=== PATIENT | female | born 1965 | race African-American/Black ===

== ENCOUNTER 2024-02-17 12:36 | Inpatient (IN) | payer OTHER ==
[2024-02-17 13:50] VITALS: BMI 30.4
[2024-02-17] MEDS ORDERED: MAG HYDROX/AL HYDROX/SIMETH 30 ML UNIT-DOSE CUP PO PRN (14:27)
[2024-02-17] MEDS ORDERED: chlordiazePOXIDE HCL 25 MG CAPSULE PO PRN (14:27)
[2024-02-17] MEDS ORDERED: ONDANSETRON *ODT* 4 MG TABLET SL PRN (14:27)
[2024-02-17] MEDS ORDERED: hydrOXYzine PAMOATE 25 MG CAPSULE (FP) PO PRN (14:27)
[2024-02-17] MEDS ORDERED: BENZONATATE 200 MG CAPSULE PO PRN (14:27)
[2024-02-17] MEDS ORDERED: guaiFENesin 600 MG TABLET.ER (FP) PO PRN (14:27)
[2024-02-17] MEDS ORDERED: NALOXONE (NARCAN) HCL 4 MG/0.1 ML SPRAY NS PRN (14:27)
[2024-02-17] MEDS ORDERED: IBUPROFEN 400 MG TABLET (FP) PO PRN (14:27)
[2024-02-17] MEDS ORDERED: BISMUTH SUBSALICYLATE 262 MG/15 ML BTL PO PRN (14:27)
[2024-02-17] MEDS ORDERED: MAGNESIUM HYDROX 2400MG/30ML ORAL SUSPENSION 30 ML CUP PO PRN (14:27)
[2024-02-17] MEDS ORDERED: BENZOCAINE/MENTHOL (CHLORASEPTIC ) LOZENGE MM PRN (14:27)
[2024-02-17] MEDS ORDERED: IBUPROFEN 600 MG TABLET (FP) PO PRN (14:27)
[2024-02-17] MEDS ORDERED: POLYETHYLENE GLYCOL (HEALTHYLAX) 3350 17 GM PACKET PO PRN (14:27)
[2024-02-17] MEDS ORDERED: DICYCLOMINE HCL 10 MG CAPSULE PO PRN (14:27)
[2024-02-17] MEDS ORDERED: LOPERAMIDE HCL 2 MG CAPSULE PO PRN (14:27)
[2024-02-17] MEDS: PRENATAL VITAMINS W/ FOLIC ACID TABLET (FP) PO SCH (14:54)
[2024-02-17] MEDS: NICOTINE 7 MG/24 HOURS TOPICAL PATCH TD SCH (15:13)
[2024-02-17] MEDS: METHOCARBAMOL 500 MG TABLET PO PRN (17:46)
[2024-02-17] MEDS: ACETAMINOPHEN 325 MG TABLET (FP) PO PRN (17:52)
[2024-02-17] MEDS: THIAMINE 100 MG TABLET PO SCH (22:47)
[2024-02-17] MEDS: MELATONIN 5 MG TABLETS PO SCH (22:47)
[2024-02-17] MEDS: chlordiazePOXIDE HCL 25 MG CAPSULE PO SCH (22:48)
[2024-02-18] MEDS ORDERED: ALBUTEROL SO4 HFA INHALER IH PRN (09:39)
[2024-02-18 11:13] LABS: HEMATOCRIT 32.2 % (32.4-45.2); HEMOGLOBIN 10.4 GM/dL (10.7-15.3); MCH 26.8 pg (25.7-33.7); MCHC 32.2 g/dl (32.0-36.0); MEAN CELL VOLUME 83.3 fl (80-96); MEAN PLT VOLUME 8.8 fl (7.5-11.1); PLATELET COUNT 212 10^3/uL (134-434); RBC 3.86 M/mm3 (3.60-5.2); RDW 14.8 % (11.6-15.6); WHITE BLOOD COUNT 6.6 K/mm3 (4.0-10.0)
[2024-02-18 11:34] LABS: POTASSIUM 5.1 mmol/L (3.5-5.1)
[2024-02-18 11:36] LABS: CALCIUM 9.6 mg/dL (8.5-10.1)
[2024-02-18 11:37] LABS: ALBUMIN 3.6 g/dl (3.4-5.0); BLOOD UREA NITROGEN 32.6 mg/dL (7-18)
[2024-02-18] MEDS: HYDROCHLOROTHIAZIDE 12.5 MG CAPSULE (FP) PO SCH (11:39)
[2024-02-18 11:40] LABS: CREATININE 1.4 mg/dL (0.55-1.3)
[2024-02-18] MEDS: BUDESONIDE/FORMETEROL FUMARATE 160/4.5 mcg INHALER IH SCH (11:40)
[2024-02-18] MEDS: LISINOPRIL 10 MG TABLET PO SCH (11:40)
[2024-02-18 11:41] LABS: BILIRUBIN,TOTAL 0.2 mg/dL (0.2-1); TOT PROT 7.1 g/dl (6.4-8.2)
[2024-02-18] MEDS ORDERED: methaDONE HCL 10 MG TABLET PO ONE (13:41)
[2024-02-18] MEDS: methaDONE HCL 40 MG DISPERSABLE TABLET PO SCH (14:25)
[2024-02-18] MEDS ORDERED: VENLAFAXINE HCL 75 MG E.R. CAPSULES PO SCH (18:00)
[2024-02-18] MEDS ORDERED: VENLAFAXINE HCL 150 MG E.R. CAPSULE PO SCH (18:30)
[2024-02-18] MEDS: VENLAFAXINE HCL 75 MG E.R. CAPSULES PO SCH (20:00)
[2024-02-18] MEDS: QUEtiapine FUMARATE 200 MG TABLET PO SCH (22:10)
[2024-02-18] MEDS: DIVALPROEX SODIUM 500 MG TABLET E.C. PO SCH (22:10)
[2024-02-19] MEDS: chlordiazePOXIDE HCL 25 MG CAPSULE PO SCH (05:50)
[2024-02-19] MEDS: LEVOTHYROXINE NA 25 MCG TABLET (FP) PO SCH (06:04)
[2024-02-19] MEDS: QUEtiapine FUMARATE 100 MG TABLET (FP) PO SCH (09:52)
[2024-02-20] MEDS ORDERED: chlordiazePOXIDE HCL 10 MG CAPSULE PO PRN
[2024-02-20] MEDS: chlordiazePOXIDE HCL 10 MG CAPSULE PO SCH (05:55)
[2024-02-21] MEDS: chlordiazePOXIDE HCL 10 MG CAPSULE PO SCH (05:55)
[2024-02-21 11:52] LABS: POTASSIUM 4.6 mmol/L (3.5-5.1)
[2024-02-21 11:58] LABS: BLOOD UREA NITROGEN 27.4 mg/dL (7-18); CALCIUM 9.3 mg/dL (8.5-10.1)
[2024-02-21 12:01] LABS: CREATININE 1.4 mg/dL (0.55-1.3)
[2024-02-21 12:02] LABS: PHOSPHOROUS 3.7 mg/dL (2.5-4.9)
[2024-02-22] MEDS: chlordiazePOXIDE HCL 10 MG CAPSULE PO ONE (06:00)
[2024-02-22 07:12] VITALS: RESP 16
[2024-02-22 09:41] VITALS: BP 104/56; PULSE 67; TEMP 97.8
[2024-02-22] MEDS: NALOXONE (NYS OPIOID OVERDOSE PROGRAM) 4 MG/0.1 ML SPRAY NS PRN (11:21)
== END 2024-02-22 10:35 | disposition home or self-care (01) | DRG 897 ==
LOC: YASAS 12:36 → Y6N 14:42
PROVIDERS: ADMIT Allergy & Immunology; ATTEND Surgery
PROC: HZ2ZZZZ Detoxification Services for Substance Abuse Treatment (ICD-10-PCS; principal; 2024-02-18)
DX: F11.23 Opioid dependence with withdrawal (principal); F14.20 Cocaine dependence, uncomplicated; F13.20 Sedative, hypnotic or anxiolytic dependence, uncomplicated; F10.230 Alcohol dependence with withdrawal, uncomplicated; F17.210 Nicotine dependence, cigarettes, uncomplicated; I25.10 Atherosclerotic heart disease of native coronary artery without angina pectoris; I10 Essential (primary) hypertension; J45.909 Unspecified asthma, uncomplicated; R79.89 Other specified abnormal findings of blood chemistry; R76.8 Other specified abnormal immunological findings in serum; Z86.19 Personal history of other infectious and parasitic diseases
CPT/HCPCS: 36415; 80053; 80069; 80305; 80307; 85027; 86593; 86780; 93005; 93010